=== PATIENT | female | born 1945 | race Caucasian/White ===

== ENCOUNTER 2017-01-05 11:08 | Inpatient (IN) | payer MEDICARE ==
[~2017-01-05] VITALS: Ht 152.4 cm; Wt 67.5 kg
[2017-01-05] VITALS (7 sets, daily range): BP systolic 103–137; BP diastolic 59–63; BMI 28.5
[2017-01-05 11:52] LABS: APPEARANCE SLT CLOUDY (CLEAR); BACTERIA MODERATE /hpf (NONE SEEN); BILIRUBIN NEGATIVE (NEGATIVE); COLOR DK YELLOW (YELLOW); EPITHELIAL CELLS 25-50 /hpf (0-5); GLUCOSE NEGATIVE (NEGATIVE); KETONE SMALL mg/dL (NEGATIVE); LEUKOCYTE ESTERASE 1+ (NEGATIVE); MUCUS <1+ /lpf (NONE SEEN); NITRITE NEGATIVE (NEGATIVE); PROTEIN TRACE mg/dL (NEGATIVE); UROBILINOGEN NORMAL (NORMAL)
[2017-01-05 11:58] LABS: BASOPHILS 0 % (0-2); EOSINOPHILS 0 % (0-7); HEMATOCRIT 37.8 % (36.0-48.0); HEMOGLOBIN 13.9 g/dL (12-16); IMMATURE GRANULOCYTES 0.3 % (0-5); LYMPHOCYTES 3.9 % (15-50); MCH 31.7 pg (26.0-34.0); MCHC 36.8 g/dL (31.0-37.0); MCV 86.3 fL (80.0-100.0); MEAN PLATELET VOLUME 9.6 fL (7.4-10.4); MONOCYTES 9.9 % (2-11); NEUTROPHILS 85.9 % (40-80); PLATELET COUNT 179 10x3/uL (130-400); RBC 4.38 10x6/uL (4.00-5.40); RDW 12.4 % (11.5-14.5); WBC 10.4 10x3/uL (4.8-10.8)
[2017-01-05 12:12] LABS: ALBUMIN 3.9 g/dL (3.4-5.0); ALKALINE PHOSPHATASE 89 U/L (46-116); ALT (SGPT) 74 U/L (10-68); BILIRUBIN - TOTAL 1.61 mg/dL (0.2-1.3); CALC OSMOLALITY 225 mosm/kg (275-300); CALCIUM 8.6 mg/dL (8.5-10.1); CARBON DIOXIDE 22.6 mmol/L (21.0-32.0); CREATININE - SERUM 0.8 mg/dL (0.6-1.3); GLUCOSE 185 mg/dL (74-106); POTASSIUM - SERUM 3.4 mmol/L (3.5-5.1); PROTEIN - SERUM 7.3 g/dL (6.4-8.2); UREA NITROGEN 11 mg/dL (7-18); eGFR NON AFRICAN AMERICAN 75 mL/min (90-120)
[2017-01-05 12:13] LABS: AMYLASE - SERUM 744 U/L (25-115)
[2017-01-05 12:14] LABS: CHLORIDE - SERUM 74 mmol/L (98-107); SODIUM 109 mmol/L (136-145)
[2017-01-05 12:19] LABS: LIPASE 4386 U/L (73-393)
[2017-01-05 13:05] LABS: APTT 30.1 SECONDS (22.8-39.4); INR 1.11 (0.85-1.17); PROTIME 14.2 SECONDS (11.6-15.0)
[2017-01-05 13:18] LABS: CHOL - HDL RATIO 2.7 ratio (2.3-4.1); CHOLESTEROL, TOTAL 142 mg/dL (0-200); HDL CHOLESTEROL 53 mg/dL (32-96); LDL CHOLESTEROL 75 mg/dL (0-100); LDL-HDL RATIO 1.4 ratio (1.5-3.5); MAGNESIUM - SERUM 1.5 mg/dL (1.8-2.4); THYROID STIMULATING HORMONE 4.16 uIU/mL (0.36-3.74); TRIGLYCERIDE 73 mg/dL (30-200)
[2017-01-05] MEDS ORDERED: TOPROL XL25 MG PO (16:04)
[2017-01-05] MEDS ORDERED: PAXIL20 MG PO (16:04)
[2017-01-05] MEDS ORDERED: MIRAPEX0.125 MG PO (16:05)
--- NOTE | 2017-01-05 16:29 | NUR ---
SPOKE WITH MORRO MEI. REVIEWED MOST RECENT LABS. INFORMED REDRAW IS IN PROCESS. GAVE BRIEF PT HISTORY VIA TELEPHONE. NO FURTHER ORDERS AT THIS TIME. STATES SHE WILL NOTIFY DR. MCNEILL AND HE WILL COME TO SEE THE PT. 163--ANEESH WITH LAB AT BEDSIDE TO REDRAW LABS.
--- NOTE | 2017-01-05 17:23 | NUR ---
LAB REDRAW VALUES PREVIOUSLY CALLED TO DR. MCNEILL. SEE NEW ORDERS. LAB RETURNED CALL TO VERIFY NEW RESULTS AFTER RE-RUNNING ALL NA+ SPECIMENS.
--- NOTE | 2017-01-05 20:15 | NUR ---
RECEIVED CARE OF PT, ASSESSMENT PER FLOWSHEET. PT DENIES ANY PAIN AT THIS TIME, ON RA, ORIENTED X 4, PPP, SCD'S IN PLACE, SKIN INTACT, ABLE TO REPOSITION SELF INDEPENDENTLY, VSS.
--- NOTE | 2017-01-05 20:44 | NUR ---
PT C/O PAIN AT LT AC PIV SITE, D/C'D WITH CATH TIP INTACT-DRESSING APPLIED. IV STARTED X 1 STICK TO LT FA, FLUSHES EASILY, PT DENIES ANY PAIN.
[2017-01-05 20:55] LABS: ANION GAP 17.7 mmol/L (8-16); CARBON DIOXIDE 22.6 mmol/L (21.0-32.0); POTASSIUM - SERUM 3.3 mmol/L (3.5-5.1)
[2017-01-05 20:59] LABS: MAGNESIUM - SERUM 2.1 mg/dL (1.8-2.4)
--- NOTE | 2017-01-05 21:33 | NUR ---
LAB RESULTS CALLED TO DR MCNEILL, ORDERS RECEIVED.
[2017-01-05 23:28] LABS: CREATININE - URINE 24.1 mg/dL (30-125); PRO/CRE RATIO URINE 0.3 mg/g; PROTEIN - URINE 6.1 mg/dL (0.0-11.9)
--- NOTE | 2017-01-05 23:45 | NUR ---
REASSESSMENT PER FLOWSHEET, NO ACUTE CHANGES NOTED. CALL LIGHT IN REACH, BED LOW, ALARM ON.
[2017-01-06] VITALS (24 sets, daily range): BP systolic 109–143; BP diastolic 47–73
--- NOTE | 2017-01-06 01:10 | NUR ---
PT RESTING IN BED WITH EYES CLOSED, BREATHING EVEN AND UNLABORED, VSS, CONT TO MONITOR.
--- NOTE | 2017-01-06 03:55 | NUR ---
TO BATHROOM WITH LITTLE ASSISTANCE, VOIDED 600CC OF TRACIE URINE, COMPLETE LINEN CHANGE DONE,BACK TO BED AND CV MONITORS RE-ESTABLISHED, VSS.
--- NOTE | 2017-01-06 05:37 | NUR ---
0.5 MG PRN DILAUDID ADMINISTERED VIA SIVP FOR BACK PAIN 6/10 ON PAIN SCALE PER MD ORDER AND PT REQUEST, WILL MONITOR FOR EFFECT.
[2017-01-06 06:26] LABS: BASOPHILS 0 % (0-2); EOSINOPHILS 0 % (0-7); HEMATOCRIT 35.1 % (36.0-48.0); HEMOGLOBIN 12.8 g/dL (12-16); IMMATURE GRANULOCYTES 0.2 % (0-5); LYMPHOCYTES 4.4 % (15-50); MCH 31.8 pg (26.0-34.0); MCHC 36.5 g/dL (31.0-37.0); MCV 87.1 fL (80.0-100.0); MEAN PLATELET VOLUME 9.8 fL (7.4-10.4); MONOCYTES 12.7 % (2-11); NEUTROPHILS 82.7 % (40-80); PLATELET COUNT 166 10x3/uL (130-400); RBC 4.03 10x6/uL (4.00-5.40); RDW 12.8 % (11.5-14.5); WBC 10.8 10x3/uL (4.8-10.8)
[2017-01-06 06:46] LABS: CALC OSMOLALITY 253 mosm/kg (275-300); CALCIUM 8.5 mg/dL (8.5-10.1); CARBON DIOXIDE 24.8 mmol/L (21.0-32.0); CHLORIDE - SERUM 90 mmol/L (98-107); CREATININE - SERUM 0.8 mg/dL (0.6-1.3); GLUCOSE 172 mg/dL (74-106); LIPASE 1304 U/L (73-393); MAGNESIUM - SERUM 2.4 mg/dL (1.8-2.4); PHOSPHOROUS 2.8 mg/dL (2.5-4.9); POTASSIUM - SERUM 3.1 mmol/L (3.5-5.1); SODIUM 125 mmol/L (136-145); UREA NITROGEN 8 mg/dL (7-18); eGFR NON AFRICAN AMERICAN 75 mL/min (90-120)
[2017-01-06 06:47] LABS: AMYLASE - SERUM 392 U/L (25-115)
--- NOTE | 2017-01-06 07:04 | NUR ---
SODIUM RESULT CALLED TO DR MCNEILL, ORDERS RECEIVED AND IMPLEMENTED.
[2017-01-06 11:28] LABS: CALC OSMOLALITY 250 mosm/kg (275-300); CALCIUM 8.4 mg/dL (8.5-10.1); CARBON DIOXIDE 26.6 mmol/L (21.0-32.0); CHLORIDE - SERUM 89 mmol/L (98-107); CREATININE - SERUM 0.8 mg/dL (0.6-1.3); GLUCOSE 161 mg/dL (74-106); MAGNESIUM - SERUM 2.3 mg/dL (1.8-2.4); SODIUM 124 mmol/L (136-145); UREA NITROGEN 7 mg/dL (7-18); eGFR NON AFRICAN AMERICAN 75 mL/min (90-120)
[2017-01-06 11:29] LABS: POTASSIUM - SERUM 3.6 mmol/L (3.5-5.1)
[2017-01-06 18:30] LABS: CALC OSMOLALITY 262 mosm/kg (275-300); CALCIUM 8.3 mg/dL (8.5-10.1); CARBON DIOXIDE 22.7 mmol/L (21.0-32.0); CHLORIDE - SERUM 94 mmol/L (98-107); CREATININE - SERUM 0.8 mg/dL (0.6-1.3); POTASSIUM - SERUM 3.8 mmol/L (3.5-5.1); SODIUM 128 mmol/L (136-145); UREA NITROGEN 8 mg/dL (7-18); eGFR NON AFRICAN AMERICAN 75 mL/min (90-120)
[2017-01-06 18:36] LABS: GLUCOSE 237 mg/dL (74-106)
--- NOTE | 2017-01-06 18:40 | NUR ---
0900-DR MCNEILL AND ELAYNE AT [facility]-ORDERS RECIEVED AND NOTED 1045-DR MCNEILL NOTIFIED OF CURRENT BMP NA RESULT-D5W IV D/C'D-BANANA BAG INFUINSING ORDERED 1300-AMBULATING TO RESTROOM WITHOUT DIFFICULTY 1500- AT [facility]-PT AWAKE AND ALERT 1750-LAB DRAWN
--- NOTE | 2017-01-06 19:00 | NUR ---
REPORT RECEIVED AND ASSESSMENT COMPLETED. SEE FLOWSHEET FOR FULL DETAILS. PT IS ADMITTED WITH PANCREATITIS MVI INFUSING. WILL SALINE LOCK AFTER COMPLETION PER ORDERS. VSS. PT DENIES PAIN AT THIS TIME. WILL MONITOR THROUGHOUT SHIFT
--- NOTE | 2017-01-06 21:25 | NUR ---
NO CHANGES IN STATUS AT THIS TIME. PT IS RESTING IN ROOM. 2100 MED GIVEN AND FSBS CHECKED. 111. NO INSULIN GIVEN AT THIS TIME. VSS. WILL CONTINUE TO MONITOR.
--- NOTE | 2017-01-06 23:00 | NUR ---
REASSESSMENT COMPLETED. SEE FLOWSHEET FOR FULL DETAILS. NO CHANGES IN PATIENT STATUS AT THIS TIME, WILL CONTINUE TO MONITOR
[2017-01-07] VITALS (10 sets, daily range): BP systolic 109–157; BP diastolic 48–73; Ht 152.4 cm; Wt 67.5 kg
--- NOTE | 2017-01-07 01:00 | NUR ---
NO CHANGE IN STATUS AT THIS TIME. PT SLEEPING IN ROOM. EASY TO AROUSE. VSS. WILL MONITOR
--- NOTE | 2017-01-07 03:00 | NUR ---
REASSESSMENT COMPLTED SEE FLOWSHEET FOR FULL DETAILS.
[2017-01-07 04:35] LABS: BASOPHILS 0.1 % (0-2); EOSINOPHILS 0 % (0-7); HEMATOCRIT 33.2 % (36.0-48.0); HEMOGLOBIN 11.8 g/dL (12-16); IMMATURE GRANULOCYTES 0.5 % (0-5); LYMPHOCYTES 7.9 % (15-50); MCH 31.9 pg (26.0-34.0); MCHC 35.5 g/dL (31.0-37.0); MCV 89.7 fL (80.0-100.0); MEAN PLATELET VOLUME 9.9 fL (7.4-10.4); MONOCYTES 11.4 % (2-11); NEUTROPHILS 80.1 % (40-80); PLATELET COUNT 130 10x3/uL (130-400); RDW 12.9 % (11.5-14.5); WBC 11.1 10x3/uL (4.8-10.8)
[2017-01-07 04:49] LABS: CALC OSMOLALITY 256 mosm/kg (275-300); CALCIUM 7.8 mg/dL (8.5-10.1); CARBON DIOXIDE 22.5 mmol/L (21.0-32.0); CHLORIDE - SERUM 95 mmol/L (98-107); CREATININE - SERUM 0.6 mg/dL (0.6-1.3); GLUCOSE 128 mg/dL (74-106); PHOSPHOROUS 2.9 mg/dL (2.5-4.9); POTASSIUM - SERUM 3.6 mmol/L (3.5-5.1); SODIUM 128 mmol/L (136-145); UREA NITROGEN 8 mg/dL (7-18); eGFR NON AFRICAN AMERICAN > 90 mL/min (90-120)
--- NOTE | 2017-01-07 04:55 | NUR ---
NO CHANGES IN STATUS AT THIS TIME. VSS. WILL CONTINUE TO MONITOR
--- NOTE | 2017-01-07 09:52 | NUR ---
* Is the patient Alert and Oriented? Yes 0 * How many steps to enter\exit or inside your home? 0 0 * PCP Dr. Harmon 0 * Pharmacy [facility] in [place] 0 * Preadmission Environment Home with Family 0 * ADLs Independent 0 * List name and contact numbers for known caregivers / representatives who currently or will assist patient after discharge: Spouse - Zachery [phone] 0 * Additional services required to return to the preadmission environment? No 0 * Can the patient safely return to the preadmission environment? Yes 0 * Has this patient been hospitalized within the prior 30 days at any hospital? No 01/07/2017 9:53 DCP: Discharge Planning Patient Name: VALENTÍN ALBERTO Admission Status: ER Accout number: [id number] Admission Date: 01-05-2017 : 1945 Admission Diagnosis: Attending: LINDA Current LOS: 2 Anticipated DC Date: 01-09-2017 Planned Disposition: Home Primary Insurance: [employer] PPO MCR [employer] Discharge Planning Comments: CM met with patient to assess DC plans/needs. Patient states she lives at home with her , Zachery. She reports she is independent with all ADL's & IADL's. She has never had home health services in the past. At dc, she will return home with her . No needs identified or verbalized at this time. CM will follow. Manager Documentation: Brit Mejia
--- NOTE | 2017-01-07 11:57 | NUR ---
UP IN CHAIR TO EAT LUNCH. FSBS 128.
--- NOTE | 2017-01-07 13:52 | NUR ---
REPORT CALLED TO JAVED LEZAMA ON MED 2. TRANSFER TO ROOM 3.
--- NOTE | 2017-01-07 14:33 | NUR ---
ARRIVED FROM ICU INWC. ORIENTED TO ROOM. NON SKID SOCKS ON PT. IV INFUSING WELL.
--- NOTE | 2017-01-07 19:47 | NUR ---
RECEIVED REPORT, PT DENIES ANY NEEDS, BED IS LOW, SRX2, CALL LIGHT IN REACH, WILL CONTINUE PLAN OF CARE
[2017-01-08 02:21] VITALS: BP 134/74
--- NOTE | 2017-01-08 03:09 | NUR ---
ASSESSMENT COMPLETE, SEE FLOWSHEET, SLEEPING, NO DISTRESS NOTICED, BED IS LOW, SRX2, CALL LIGHT IN REACH, WILL CONTINUE TO MONITOR
[2017-01-08 05:56] LABS: BASOPHILS 0.1 % (0-2); EOSINOPHILS 0.3 % (0-7); HEMOGLOBIN 11.1 g/dL (12-16); IMMATURE GRANULOCYTES 0.5 % (0-5); LYMPHOCYTES 7.7 % (15-50); MCH 31.4 pg (26.0-34.0); MCHC 34.7 g/dL (31.0-37.0); MCV 90.4 fL (80.0-100.0); MEAN PLATELET VOLUME 9.9 fL (7.4-10.4); MONOCYTES 14.2 % (2-11); NEUTROPHILS 77.2 % (40-80); RBC 3.54 10x6/uL (4.00-5.40); RDW 13.1 % (11.5-14.5); WBC 12.9 10x3/uL (4.8-10.8)
[2017-01-08 06:05] LABS: PLATELET COUNT 176 10x3/uL (130-400)
[2017-01-08 06:24] LABS: CALC OSMOLALITY 256 mosm/kg (275-300); CALCIUM 7.9 mg/dL (8.5-10.1); CARBON DIOXIDE 24.4 mmol/L (21.0-32.0); CHLORIDE - SERUM 95 mmol/L (98-107); CREATININE - SERUM 0.7 mg/dL (0.6-1.3); GLUCOSE 112 mg/dL (74-106); PHOSPHOROUS 2.7 mg/dL (2.5-4.9); POTASSIUM - SERUM 3.6 mmol/L (3.5-5.1); SODIUM 128 mmol/L (136-145); UREA NITROGEN 9 mg/dL (7-18); eGFR NON AFRICAN AMERICAN 87 mL/min (90-120)
[2017-01-08 06:34] VITALS: BP 147/78
--- NOTE | 2017-01-08 07:05 | NUR ---
RECEIVED REPORT. ASSUMED CARE OF PATIENT. CALL LIGHT WITHIN REACH. PATIENT STATES SHE FEELS BETTER AND IS WANTING TO GO HOME. RESP EVEN AND UNLABORED. DENIES NEEDS THIS AM. NO DISTRESS.
[2017-01-08 07:59] VITALS: BP 155/73
--- NOTE | 2017-01-08 09:50 | NUR ---
NOTIFIED BY DENIS/ROGELIO THAT PT WAS GOING TO PULL IV'S OUT BECAUSE SHE WANTED TO GO HOME. I WENT INTO ROOM AND SPOKE WITH PT. SHE INSISTED IV'S BE REMOVED. I DC'D IV'S WITH TIPS INTACT. COVERED WITH 2X2'S AND TAPE. TOLERATED WELL. I ADVISED THAT ALTHOUGH DR. MCNEILL SAID THAT SHE COULD LEAVE TODAY, THAT DR. RUST IS THE ADMITTING PHYSICIAN AND HE WOULD NEED TO SEE HER TODAY AND PUT THE DISCHARGE IN IF IN AGREEMENT. SHE VERBALLY ACKNOWLEDGED. SAID WE WERE ALL VERY KIND AND NICE BUT THAT SHE THOUGHT SHE COULD HEAL BETTER AT HOME. I ADVISED I WOULD LET SILVESTRE/SOURCE W[employer] PROTECTION SPECIALIST KNOW THAT SHE WANTED TO LEAVE SOON POSSIBLE.
[2017-01-08 10:07] LABS: LIPASE 459 U/L (73-393)
[2017-01-08 10:12] LABS: AMYLASE - SERUM 132 U/L (25-115)
--- NOTE | 2017-01-08 10:13 | NUR ---
WHEN I ARRIVED BACK TO FLOOR FROM TAKING ANOTHER PT TO DIALYSIS I WAS INFORMED BY LIBERTY/MANUFACTURING INSPECTOR THAT PT'S SPOUSE CAME TO DESK AND ADVISED HE WAS HERE TO TAKE PT HOME AND THAT HE WAS TIRED OF WAITING ON THE OTHER PHYSICIAN TO DISCHARGE HOME AND THAT THEY COULD MAIL THE DISCHARGE PAPER WORK AND PRESCRIPTIONS TO THEIR HOME ADDRESS. HE THEN WENT INTO THE ROOM AND GRABBED PT BY HAND AND TOOK HER DOWN THE MENENDEZ AND GOT IN ELEVATOR AND LEFT.
--- NOTE | 2017-01-08 10:16 | NUR ---
PER LIBERTY/CUTTER BRAKE LINING, DR. RUST ARRIVED ON FLOOR AND WAS NOTIFIED OF SITUATION.
== END 2017-01-08 10:10 | disposition left against medical advice (07) | DRG 643 ==
LOC: D.ER 11:08 → D.CVICU 12:38 → D.M2 01-07 13:53
PROVIDERS: Emergency Medicine; Family Medicine; Internal Medicine Nephrology; ADMIT Family Medicine Adult Medicine
DX: E22.2 Syndrome of inappropriate secretion of antidiuretic hormone (principal); K85.20 Alcohol induced acute pancreatitis without necrosis or infection; K86.0 Alcohol-induced chronic pancreatitis; I10 Essential (primary) hypertension; F32.9 Major depressive disorder, single episode, unspecified; G25.81 Restless legs syndrome; N30.90 Cystitis, unspecified without hematuria; E87.6 Hypokalemia